=== PATIENT | female | born 1975 | race Caucasian/White ===

== ENCOUNTER 2024-04-17 06:03 | Day surgery (SDC) | payer BC ==
[2024-04-14 10:43] VITALS: BMI 28.9
[2024-04-17] MEDS ORDERED: LIDOCAINE HCL/PF 2% SDV 5ML VIAL ONE (07:09)
[2024-04-17] MEDS ORDERED: MIDAZOLAM HCL 2 MG/2 ML SINGLE DOSE VIAL ONE (07:10)
[2024-04-17] MEDS ORDERED: PROPOFOL 20 ML ONE (07:10)
[2024-04-17] MEDS ORDERED: LIDOCAINE HCL 1%, 10 MG/ML (20ML VIAL) ONE (07:12)
[2024-04-17] MEDS ORDERED: EPINEPHrine 1:1,000 1,000 MCG/ML ML ONE (07:12)
[2024-04-17] MEDS ORDERED: DEXAMETHASONE SOD PHOSPHATE 4 MG/1 ML VIAL ONE (07:37)
[2024-04-17] MEDS ORDERED: ceFAZolin SODIUM 1 GM VIAL ONE (07:37)
[2024-04-17] MEDS ORDERED: KETOROLAC TROMETHAMINE 30 MG/1 ML VIAL ONE (07:37)
[2024-04-17] MEDS ORDERED: ONDANSETRON 4 MG/2 ML VIAL ONE (07:37)
[2024-04-17] MEDS ORDERED: ONDANSETRON 4 MG/2 ML VIAL IVPUSH PRN (08:31)
[2024-04-17] MEDS ORDERED: PROMETHAZINE HCL 25 MG/1 ML VIAL IVPB PRN (08:31)
[2024-04-17] MEDS ORDERED: oxyCODONE HCL 5 MG TABLET PO PRN ×2 (08:31)
[2024-04-17] MEDS ORDERED: LACTATED RINGERS SOLUTION 1,000 ML IV SCH (08:45)
[2024-04-17] MEDS: ACETAMINOPHEN 1000 MG/100 ML BAG IVPB ONE (08:53)
[2024-04-17 10:03] VITALS: TEMP 97.5
[2024-04-17 10:31] VITALS: BP 124/71; PULSE 61; RESP 19
== END 2024-04-17 11:10 | disposition home or self-care (01) ==
LOC: FASU 06:03
PROVIDERS: ATTEND Student in an Organized Health Care Education/Training Program
PROC: 0SBC4ZZ Excision of Right Knee Joint, Percutaneous Endoscopic Approach (ICD-10-PCS; principal; 2024-04-17 07:59)
DX: S83.281A Other tear of lateral meniscus, current injury, right knee, initial encounter (principal); M17.11 Unilateral primary osteoarthritis, right knee; X58.XXXA Exposure to other specified factors, initial encounter; Y92.9 Unspecified place or not applicable; Y93.9 Activity, unspecified
CPT/HCPCS: 81025; 94760; J0131